=== PATIENT | female | born 1995 | race Caucasian/White ===

== ENCOUNTER 2017-11-14 03:27 | Emergency (ER) | payer BC ==
[2017-11-14 03:32] VITALS: BP 140/84
[2017-11-14] MEDS ORDERED: FLUORESCEIN SOD/BENOXINATE HCL 20 DROPS/ML OPHT.BTL OP ONE (03:59)
[2017-11-14] MEDS ORDERED: PROPARACAINE 0.5% 15 ML OPHT DROP OP ONE (04:00)
--- NOTE | 2017-11-14 04:05 | EDPHY ---
H & P Stated Complaint: L eye burning, recent migraines Time Seen by Provider: 11/14/17 03:43 HPI/ROS: HPI The patient presents with left-sided eye pain which she describes as a burning sensation within her orbit as well as a retro-orbital pressure. Symptoms began at about 1:00 a.m. While she was trying to sleep. She denies any changes in her vision or any redness of her eye. She does not have any photophobia, nausea or vomiting. She denies any trauma to the eye. Three days ago she had a migraine headache and since then has not quite felt herself. She usually wears glasses. She does not have any headache besides the retro-orbital left- sided eye pain.. REVIEW OF SYSTEMS Constitutional: No fever, no chills. Eyes: No discharge. ENT: No sore throat. Cardiovascular: No chest pain, no palpitations. Respiratory: No cough, no shortness of breath. Gastrointestinal: No abdominal pain, no vomiting. Genitourinary: No hematuria. Musculoskeletal: No back pain. Skin: No rashes. Neurological: See HPI PMHx: Occasional migraine headache Soc Hx: Recently moved to the area PHYSICAL General Appearance: Alert, no distress Eyes: Pupils equal and round no pallor or injection EYE EXAM Visual Acuity: noted from Nurse's notes. Pupils: equal round and reactive to light EOMI Skin: no proptosis, no periorbital erythema or swelling, no vesicles Conjunctivae: not injected, no discharge Cornea: exam with fluoroscein shows no uptake Anterior chamber:normal, no hyphema or hypopyon ENT, Mouth: Mucous membranes moist Respiratory: There are no retractions, lungs are clear to auscultation Cardiovascular: Regular rate and rhythm Neurological: A&O, moves all extremities Skin: Warm and dry, no rashes Musculoskeletal: Neck is supple non tender Extremities: symmetrical, full range of motion Psychiatric: Patient is oriented X 3, there is no agitation Source: Patient Exam Limitations: No limitations - Personal History LMP (Females 10-55): 15-21 Days Ago Current Tetanus Diphtheria and Acellular Pertussis (TDAP): Yes - Medical/Surgical History Hx Asthma: No Hx Chronic Respiratory Disease: No Hx Diabetes: No Hx Cardiac Disease: No Hx Renal Disease: No Hx Cirrhosis: No Hx Alcoholism: No Hx HIV/AIDS: No Hx Splenectomy or Spleen Trauma: No - Social History Smoking Status: Never smoked Constitutional: Initial Vital Signs Temperature (C) 36.7 C 11/14/17 03:27 Heart Rate 87 11/14/17 03:27 Respiratory Rate 18 11/14/17 03:27 Blood Pressure 140/84 H 11/14/17 03:27 O2 Sat (%) 98 11/14/17 03:27 O2 Delivery Mode Room Air Allergies/Adverse Reactions: No Known Allergies Allergy (Unverified 11/14/17 03:27) Medical Decision Making Differential Diagnosis: 22-year-old female who presents with burning of her eye with dissociation with retro-orbital headache. Eye exam is unremarkable. I feel she is likely suffering from dry ice which may have induced a migraine. I have encouraged her to use artificial tears. I have also encouraged her to treat her headache with ibuprofen or Tylenol. She is in agreement with this plan. I doubt any orbital cellulitis. - Data Points Medications Given: Discontinued Medications Fluorescein Sodium/Benoxinate HCl (Flurox) 2 drops OP EDNOW ONE Stop: 11/14/17 04:00 Last Admin: 11/14/17 04:36 Dose: 1 applic Proparacaine HCl (Alcaine 0.5%) 1 drops OP EDNOW ONE Stop: 11/14/17 04:01 Last Admin: 11/14/17 04:35 Dose: 1 drop Departure - Departure Disposition: Home, Routine, Self-Care Clinical Impression: Dry eye of left side, Migraine Condition: Good Instructions: Migraine Headache (ED), Dry Eye Syndrome (ED) Additional Instructions: I recommend you by artificial tears without preservatives [id number] use this for your eyes. If you have any more headaches I would recommend taking ibuprofen 400 mg every 6 hr. I have listed a primary care physician below if you would like to establish primary care. Referrals: Alex Rajan MD [Medical Doctor] - As per Instructions
[2017-11-14] MEDS ORDERED: FLUORESCEIN SODIUM 1 MG STRIP OP ONE (04:16)
== END 2017-11-14 04:37 | disposition home or self-care (01) ==
DX: H04.122 Dry eye syndrome of left lacrimal gland (principal); G43.909 Migraine, unspecified, not intractable, without status migrainosus